=== PATIENT | male | born 1955 | race Caucasian/White ===

== ENCOUNTER 2017-03-03 05:08 | Observation (INO) | payer OTHER ==
[~2017-03-03] VITALS: Ht 175.3 cm; Wt 56.7 kg
--- NOTE | ~2017-03-03 | HC ---
[facility] [place] [address] CONSULTATION Name: DELBRENDA MOHANG [facility]: 433[id number] Admission: 03/03/17 Attend Phys: Henna Arceo Discharge: Date of : 55 Report #: [id number] THIS REPORT FOR: //name// CC: Henna COPELANDKatie BECKY DATE OF SERVICE: 03/03/2017 DATE OF SERVICE: 03/03/2017 CHIEF COMPLAINT: Right knee and ankle sprain, syncope and fall. HISTORY OF PRESENT ILLNESS: This very frail 62-year-old gentleman with multiple medical problems and renal transplant performed 3 years ago, currently lives at home with his nephew and the nephew's . He states he has been moderately active and fairly independent without significant recent problems. He denies significant preexisting knee or ankle pain. This morning, he states he was descending stairs and suddenly his legs gave away. It is not clear how far he may have fallen or whether he may have had a brief syncopal episode. He states he twisted the right knee and ankle as he fell and developed increased discomfort. He denies any other areas of discomfort at this time. PHYSICAL EXAMINATION: At the time of my evaluation, he is somewhat frail and mildly confused. He seems to understand the situation and offers a reasonably clear history of these events; however, I cannot determine if he actually had a brief period of syncope or simply stumbled and fell. He has no areas of complaint or discomfort aside from the right knee and the right ankle. Objectively, there is no evidence of head injury. There is no bruising. He has good movement of the neck without any apparent discomfort. He seems to have good movement of both upper extremities without any localized discomfort. He has an old AV fistula in the left forearm. The back seems to reveal normal contour and alignment and no significant discomfort to palpation or movement. The pelvis is stable and nontender. The left lower extremity reveals satisfactory movement of the left hip, knee and ankle without significant discomfort. There is minor crepitus at the knee suggesting mild degenerative arthritis. The right lower extremity is uncomfortable in a rather diffuse, nonspecific fashion. There is some swelling and mild knee effusion with some discomfort to palpation and movement in a rather diffuse fashion. The knee does not seem unstable and there is no obvious deformity. Findings are most consistent with a mild knee sprain with a secondary knee effusion. The right tibia seems to be intact and stable. He notes he did have an old fibula fracture many years ago and there is slight deformity over the mid fibula, but this is stable and nontender. The right ankle reveals satisfactory alignment and range of motion and stability, but there is some discomfort to palpation and movement consistent with a simple ankle sprain. Neurologic and vascular status appear to be intact. [address] [address] CONSULTATION Name: BRENDA MATHIS Room #: 433-I [facility] M.Sterling#: [id number] Admission: 03/03/17 Attend Phys: Henna Arceo Discharge: Date of : 55 Report #: [id number] IMAGING: X-rays of the right knee reveal moderate degenerative change with some periarticular spurring. There is some joint space narrowing consistent with degenerative change. There is no evidence of fracture. There is a mild knee effusion. X-rays of the right ankle reveal also moderate degenerative change with some spurring and joint space narrowing, but no evidence of fracture. ASSESSMENT AND PLAN: In summary, this gentleman is quite frail and probably needs a good deal of assistance for routine daily activities. I believe he simply fell and sprained the right knee and ankle. It is unclear if there was actually a syncopal episode or he simply had a misstep and fell. I think the right knee and ankle are stable and should do nicely with conservative management. He is currently supported in a long leg splint, but I think this can be removed at any point when comfort allows. I think he probably does need a brief hospital admission to assess for syncopal episode or any other current general medical problems with regard to the right knee and ankle. I believe he can start immediately with physical therapy for training and using a walker. I feel he can bear weight as tolerated. Whenever he is safe, he may be discharged for either assistance at home if possible or brief stay at an extended care facility if more directed assistance is required. <ELECTRONICALLY SIGNED> By: Brenda Ku MD 03/04/17 0804 [id number] [id number] Brenda Ku MD /nt
--- NOTE | ~2017-03-03 | 2DMMODE ---
[facility] [address] [place] [address] 2 D/M-MODE ECHOCARDIOGRAM Name: BRENDA MATHIS Room #: 433-I ADM IN .R.#: [id number] Admission: 03/03/17 Attend Phys: Henna Hugo Discharge: Date of : 55 Date of Service: 03/03/17 1556 Report #: [id number] THIS REPORT FOR: //name// APPROVED REPORT Study performed: 03/03/2017 13:53:54 EXAM: Comprehensive 2D, Doppler, and color-flow Echocardiogram Patient Location: Bedside Room #: 433 Status: routine BSA: 1.69 HR: 66 bpm BP: 143/61 mmHg Other Information Study Quality: Good Indications Diabetes Syncope Hypertension/HDD 2D Dimensions RVDd: 35.17 mm LVEF(%): 68.57 (>50%) IVSd: 15.70 (7-11mm) LVOT Diam: 17.70 (18-24mm) LVDd: 43.30 mm PWd: 15.60 (7-11mm) Ascending Ao: 24.93 (22-36mm) LVDs: 26.80 (25-40mm) Aortic Root: 32.31 mm IVC: 21.00 mm Morris's LVEF: 68.57 % Volumes Left Atrial Volume (Systole) Single Plane 4CH: 104.86 mL Single Plane 2CH: 70.06 mL LA ESV Index: 57.00 mL/m2 Aortic Valve AoV Peak Cali.: 2.55 m/s AO Peak Gr.: 26.05 mmHg LVOT Max P.48 mmHg AO Mean Gr.: 13.06 mmHg LVOT Mean P.30 mmHg AO V2 Mean: 1.69 m/s LVOT Max V: 1.06 m/s AO V2 VTI: 52.14 cm LVOT Mean V: 0.69 m/s LYUDMILA (VTI): 1.15 cm2 LVOT V1 VTI: 24.43 cm LYUDMILA Vmax: 1.02 cm2 [facility] [address] [place] [address] 2 D/M-MODE ECHOCARDIOGRAM Name: BRENDA MATHIS Room #: 433-I [facility] IN .R.#: [id number] Admission: 03/03/17 Attend Phys: Henna Hugo Discharge: Date of : 55 Date of Service: 03/03/17 1556 Report #: [id number] SV (LVOT): 60.05 mL Mitral Valve E/A Ratio: 1.2 MV Decel. Time: 198.41 ms MV E Max Cali.: 0.97 m/s MV A Cali.: 0.79 m/s MV PHT: 57.54 ms IVRT: 96.89 ms Pulmonary Valve PV Peak Cali.: 1.02 m/s PV Peak Gr.: 4.18 mmHg Pulmonary Vein P Vein S: 1.16 m/s P Vein A: 0.24 m/s P Vein D: 0.99 m/s P Vein A Dur.: 110.7 msec P Vein S/D Ratio: 1.17 Tricuspid Valve TR Peak Cali.: 3.09 m/s TR Peak Gr.: 38.28 mmHg PA Pressure: 48.00 mmHg Left Ventricle The left ventricle is normal size. Moderate concentric left ventricular hypertrophy. Left ventricular systolic function is normal. LVEF is 65%. Grade I - abnormal relaxation pattern. Right Ventricle The right ventricle is normal size. The right ventricular systolic function is normal. Atria Left atrium is dilated. Right atrium is at the upper limits of normal. Aortic Valve The aortic valve is normal in structure. Aortic valve is calcified. No aortic regurgitation is present. Moderate aortic stenosis. Mitral Valve The mitral valve is normal in structure. There is mitral annular calcification. Trace mitral regurgitation. No evidence of mitral valve stenosis. Tricuspid Valve [facility] [address] [place] [address] 2 D/M-MODE ECHOCARDIOGRAM Name: BRENDA MATHIS Room #: 433-I [facility] IN M.R.#: [id number] Admission: 03/03/17 Attend Phys: Henna Hugo Discharge: Date of : 55 Date of Service: 03/03/17 1556 Report #: [id number] The tricuspid valve is normal in structure. There is mild tricuspid regurgitation. There is moderate pulmonary hypertension. Pulmonic Valve The pulmonary valve is normal in structure. Trace pulmonic regurgitation. Great Vessels The aortic root is normal in size. IVC is dilated and collapses >50% with inspiration. Pericardium There is no pericardial effusion. <Conclusion> The left ventricle is normal size. Moderate concentric left ventricular hypertrophy. Left ventricular systolic function is normal. The right ventricle is normal size. Left atrium is dilated. Moderate aortic stenosis. There is mitral annular calcification. Trace mitral regurgitation. There is mild tricuspid regurgitation. There is moderate pulmonary hypertension. <ELECTRONICALLY SIGNED> By: Abdoulaye Vela MD 03/03/17 1556 1556 1556 Abdoulaye Vela MD /INF
[~2017-03-03 05:08] MED LIST: ALTACE10 M1 PO; COUMADIN 1MG TAB1 M1 PO; JANUVIA25 MG PO; LASIX 40 MG TAB40 M1 GT; LIPITOR40 MG PO; PHOSLO667 MG PO; PROZAC 20 MG20 M1 PO; TOPROL XL50 MG PO
[2017-03-03 05:09] VITALS: BP 143/67
[2017-03-03] MEDS ORDERED: MAGNESIUM-VIT1 EACH PO (05:14)
[2017-03-03] MEDS ORDERED: ASTAGRAF XL1 MG PO (05:15)
[2017-03-03] MEDS ORDERED: PREDNISONE 5 MG5 M1 PO (05:16)
[2017-03-03] MEDS ORDERED: MYFORTIC180 MG PO (05:16)
[2017-03-03] MEDS ORDERED: NORVASC10 MG PO (05:17)
[2017-03-03] MEDS ORDERED: COREG25 MG PO (05:17)
[2017-03-03] MEDS ORDERED: XIFAXAN550 M1 PO (05:19)
[2017-03-03] MEDS ORDERED: PROZAC20 MG PO (05:19)
[2017-03-03] MEDS ORDERED: JANUVIA100 MG PO (05:20)
[2017-03-03] MEDS ORDERED: LEVEMIR SUBQ (05:20)
[2017-03-03] MEDS ORDERED: SPIRIVA INH (05:21)
[2017-03-03] MEDS ORDERED: NOVOLOG100 UNIT/1 SUBQ (05:21)
[2017-03-03] MEDS ORDERED: ASPIRIN325 PO (05:22)
[2017-03-03 07:09] LABS: HEMATOCRIT 39.3 % (42.0-52.0); HEMOGLOBIN 13.4 gm/dL (14.0-18.0); MCH 32.6 pg (26.0-34.0); MCHC 34.1 g/dL (28.0-37.0); MCV 95.6 fL (80.0-100.0); RBC 4.12 mil/uL (4.50-6.00); RDW 16.1 % (10.5-14.5); WBC 11.9 thou/uL (4.0-11.0)
[2017-03-03 07:25] LABS: APTT 30.6 Seconds (24.5-32.8); PROTIME 20.2 Seconds (9.3-11.4)
[2017-03-03 07:26] LABS: CALCIUM 9.1 mg/dL (8.5-10.1); CREATININE 1.8 mg/dL (0.7-1.3); POTASSIUM 3.6 mmol/L (3.5-5.1)
[2017-03-03 07:29] LABS: ALBUMIN 3.8 g/dL (3.4-5.0); TOTAL BILIRUBIN 0.9 mg/dL (<0.1-1.0); TOTAL PROTEIN 6.2 g/dL (6.4-8.2)
[2017-03-03 08:03] VITALS: BP 178/64
[2017-03-03 08:59] VITALS: BP 178/64
[2017-03-03 09:50] VITALS: BP 143/61
[2017-03-03 16:00] VITALS: BP 126/58
[2017-03-03 20:40] VITALS: BP 111/51
[2017-03-04 04:02] VITALS: BP 128/56
[2017-03-04 06:49] LABS: INR 1.6; PROTIME 16.7 Seconds (9.3-11.4)
[2017-03-04 06:54] LABS: ALBUMIN 3.1 g/dL (3.4-5.0); CALCIUM 8.5 mg/dL (8.5-10.1); CREATININE 1.2 mg/dL (0.7-1.3); PHOSPHORUS 2.3 mg/dL (2.5-4.9); POTASSIUM 3.4 mmol/L (3.5-5.1)
[2017-03-04 07:52] VITALS: BP 150/64
[2017-03-04 10:43] VITALS: BP 150/64
[2017-03-04 15:07] VITALS: BP 96/41
[2017-03-04 19:03] VITALS: BP 119/46
[2017-03-05 04:30] VITALS: BP 137/36
[2017-03-05 08:00] VITALS: BP 119/46; BP 151/63
[2017-03-05] MEDS ORDERED: HYDROCODON-ACE1 EAC7 PO (09:28)
== END 2017-03-05 14:50 | disposition home or self-care (01) ==
LOC: ER 05:08 → EROBS 07:36 → 4S 07:36
PROVIDERS: Emergency Medicine; Hospitalist
DX: S80.01XA Contusion of right knee, initial encounter (principal); W19.XXXA Unspecified fall, initial encounter; Y93.89 Activity, other specified; Y92.89 Other specified places as the place of occurrence of the external cause; Y99.8 Other external cause status; F17.210 Nicotine dependence, cigarettes, uncomplicated; E11.22 Type 2 diabetes mellitus with diabetic chronic kidney disease; I12.0 Hypertensive chronic kidney disease with stage 5 chronic kidney disease or end stage renal disease; N18.6 End stage renal disease; Z99.2 Dependence on renal dialysis; R55 Syncope and collapse; E86.9 Volume depletion, unspecified

== ENCOUNTER 2018-06-24 16:09 | Emergency (ER) | payer OTHER ==
[~2018-06-24] VITALS: Ht 175.3 cm; Wt 59.0 kg
[~2018-06-24 16:09] MED LIST changes: +ASPIRIN325 PO; +ASTAGRAF XL1 MG PO; +COREG25 MG PO; +HYDROCODON-ACE1 EAC7 PO; +JANUVIA100 MG PO; -LASIX 40 MG TAB40 M1 GT; +LASIX 40 MG TAB40 M1 PO; +LEVEMIR SUBQ; +MAGNESIUM-VIT1 EACH PO; +MYFORTIC180 MG PO; +NORVASC10 MG PO; +NOVOLOG100 UNIT/1 SUBQ; +PREDNISONE 5 MG5 M1 PO; +PROZAC20 MG PO; +SPIRIVA INH; +XIFAXAN550 M1 PO
[2018-06-24 17:00] LABS: BE(vivo) 3.1 mmol/L (-2 to +3); PCO2 45.1 mmHg (35.0-45.0); PO2 96.9 mmHg (80.0-100.0); pH 7.411 (7.360-7.450); sO2 97.4 % (92.0-98.0)
[2018-06-24 18:20] VITALS: BP 154/62
== END 2018-06-24 18:21 | disposition home or self-care (01) ==
LOC: ER 16:09
PROVIDERS: Emergency Medicine
DX: T69.9XXA Effect of reduced temperature, unspecified, initial encounter (principal); R06.00 Dyspnea, unspecified; G89.29 Other chronic pain; E11.9 Type 2 diabetes mellitus without complications; I10 Essential (primary) hypertension; K75.9 Inflammatory liver disease, unspecified; N19 Unspecified kidney failure; Z99.2 Dependence on renal dialysis; Z90.49 Acquired absence of other specified parts of digestive tract; Z87.891 Personal history of nicotine dependence; Z91.09 Other allergy status, other than to drugs and biological substances

== ENCOUNTER 2018-06-25 17:51 | Inpatient (IN) | payer OTHER ==
[~2018-06-25] VITALS: Ht 175.3 cm; Wt 59.4 kg
--- NOTE | ~2018-06-25 | H ---
[facility] [place] [place] [address] HISTORY AND PHYSICAL Name: DELBRENDA García Room #: 170-23 [facility] Judy#: [id number] Admission: 06/25/18 Attend Phys: Gerson Elliott MD Discharge: Date of : 55 Report #: [id number] THIS REPORT FOR: //name// CC: Gerson COPELANDKatie KAYLAJoe DATE OF SERVICE: 06/25/2018 REASON FOR ADMISSION: Shortness of breath, in need for the oxygen, out of power. HISTORY OF PRESENT ILLNESS: This is a very complicated 63-year-old with extensive past medical history including end-stage renal disease who was on hemodialysis for 9 years and had a kidney transplant 5 years ago. He is also known to have hepatitis C, recently diagnosed with lung cancer. A few months ago, the patient had recurrent pleural effusion and was diagnosed to have lung cancer. Unfortunately, none of his records are available for me. All of his care had been carried out at [facility]. This includes his kidney transplant, his oncologist care. Unfortunately, the patient has issues with his power at home. He requires oxygen and because of the lack of power, he presented to our facility. He is maintained by nasal cannula 2 liters. He did not feel safe returning home since he is in need for oxygen. The patient is not clear on his current health issues; however, he tells me that he had a kidney transplant 5 years ago and he is maintained on dual immunosuppression. He also had a newly diagnosed lung cancer for which he received radiotherapy with no success. He is currently receiving chemotherapy, but he does not recall the exact name of his chemotherapeutic agents. PAST MEDICAL AND SURGICAL HISTORY: 1. Lung cancer. 2. Kidney transplant 5 years ago. 3. Remote history of end-stage renal disease, maintained on dialysis for 9 years with a left arm AV fistula that is clotted. 4. Diabetes mellitus. 5. Anemia. 6. Hepatitis C. 7. Left AV fistula. 8. Recurrent pleural effusion. 9. Anemia. 10. Tonsillectomy. 11. Cholecystectomy. SOCIAL HISTORY: He denies drug or alcohol abuse. He quit smoking back in February. He smoked for about 25 years. MEDICATIONS: [facility] [address] [place] [address] HISTORY AND PHYSICAL Name: BRENDA MATHIS Room #: 170-[facility] Antonieta Mcbride.#: [id number] Admission: 06/25/18 Attend Phys: Gerson Elliott MD Discharge: Date of : 55 Report #: [id number] 1. Rifaximin. 2. Warfarin. 3. Atorvastatin. 4. Carvedilol. 5. Amlodipine. 6. Furosemide. 7. Prednisone. 8. Sitagliptin. 9. Mycophenolate. 10. Prograf. ADDITIONAL PAST MEDICAL HISTORY: 1. History of DVT for which he is maintained on Coumadin. 2. History of inferior vena cava filter placement. 3. Questionable history of a stent in his renal artery, there is the grafted kidney. 4. History of atrial fibrillation with ablation x 2. 5. COPD. REVIEW OF SYSTEMS: GENERAL: Significant for weakness. CARDIOVASCULAR: Shortness of breath. PULMONARY: Chronic cough. Chronic shortness of breath. GASTROINTESTINAL: Loss of appetite with weight loss. MUSCULOSKELETAL: Occasional back pain. GENITOURINARY: No hematuria. No frequency. NEUROLOGIC: Weakness. PHYSICAL EXAMINATION: GENERAL: The patient is very emaciated and cachectic. VITAL SIGNS: Temperature 37.3, pulse 93, respiratory rate 16, blood pressure 128/77, pulse ox 95% on 2 liters. HEAD AND NECK: No jugular venous distention. CHEST: Decreased air entry bilaterally. CARDIOVASCULAR: No rub detected. ABDOMEN: Soft, nontender with grafted kidney in the right lower quadrant. EXTREMITIES: Lower extremities, no edema with intact peripheral pulses. LABORATORY DATA: None. ASSESSMENT, IMPRESSION AND PLAN: 1. Lung cancer. 2. Chronic obstructive pulmonary disease, chronic respiratory failure. 3. Oxygen dependence. 4. Kidney transplant. 5. Immunosuppressive status. [facility] [address] [place] [address] HISTORY AND PHYSICAL Name: BRENDA MATHIS Room #: [address]#: [id number] Admission: 06/25/18 Attend Phys: Gerson Elliott MD Discharge: Date of : 55 Report #: [id number] 6. Malnutrition. 7. Ongoing social issues. 8. We will admit the patient overnight and resume his usual home medications. Keep on oxygen. 9. Obtain routine labs. 10. Resume his immunosuppressive medication for his kidney transplant. 11. Accu-Chek. 12. Resume his diabetic medications. 13. Check INR and resume his Coumadin for his deep venous thrombosis. 14. If the patient's power is back, he should be able to go home tomorrow and he could follow up with for ongoing issues; otherwise, he will need complete consultations for his ongoing lung cancer issues, retrieval of all of his medical records from . By: [id number] Gerson Elliott MD /nt
[2018-06-25 17:58] VITALS: BP 128/77
--- NOTE | 2018-06-25 18:37 | NUR ---
PLEASE CALL [facility] AT [phone] WITH UPDATE ON PT LOCATION. [facility] IS PT [id number]. PT LIVES WITH ROSA MEDEL, PHONE NUMBER IS [phone].
[2018-06-25 21:02] VITALS: BP 190/97
[2018-06-25 21:18] VITALS: BP 198/86
[2018-06-26 03:23] VITALS: BP 159/81
[2018-06-26 05:51] LABS: RBC 1.82 mil/uL (4.50-6.00)
[2018-06-26 05:53] LABS: MCH 34.7 pg (26.0-34.0); MCHC 34.1 g/dL (28.0-37.0); MCV 101.7 fL (80.0-100.0); RDW 23.3 % (10.5-14.5); WBC 3.5 thou/uL (4.0-11.0)
[2018-06-26 05:56] LABS: INR 1.2; PROTIME 12.5 Seconds (9.3-11.4)
[2018-06-26 05:57] LABS: HEMOGLOBIN 6.3 gm/dL (14.0-18.0)
[2018-06-26 05:58] LABS: HEMATOCRIT 18.5 % (42.0-52.0)
[2018-06-26 06:17] LABS: ALBUMIN 2.4 g/dL (3.4-5.0); CALCIUM 8.6 mg/dL (8.5-10.1); POTASSIUM 4.1 mmol/L (3.5-5.1); TOTAL BILIRUBIN 0.6 mg/dL (<0.1-1.0); TOTAL PROTEIN 5.3 g/dL (6.4-8.2)
[2018-06-26 07:27] VITALS: BP 171/86
--- NOTE | 2018-06-26 08:03 | NUR ---
Received pt from ED at 2109. He can in for Hypoxia. Pt has active lung cancer and is receiving chemo. He is ACHS. Has a right chest port. Left forearm fistula. No skin issues. ON 2L NC. She to work with social service assistant for placement. HGB can in at 6.3 and HCT 18.5 informed WARRANTY ADMINISTRATOR and she order 1 unit of blood. No identified needs at the moment. Will continue to monitor.
[2018-06-26 16:04] VITALS: BP 102/58
[2018-06-26 16:11] VITALS: BP 125/62; BP 132/60
--- NOTE | 2018-06-26 16:19 | NUR ---
PATIENT UP WITH STB ASSIST. FREQUENTLY USES FURNITURE FOR BALANCE. PATIENT PROVIDED WITH WALKER FOR USE. PATIENT CALLS FOR ASSIST. REMAINS ON 2L NC (HOME DOSE) O2 SATS 100%. PATIENT RIGHT CHEST PORT ACCESSED THIS SHIFT, 1 UNIT OF BLOOD TRANSFUSED THIS SHIFT. PATIENT REPORTS CHRONIC PAIN MANAGED WITH MEDICATION ORDERED. REPORTS RELIEF IN SYMPTOMS.
--- NOTE | 2018-06-26 16:51 | NUR ---
PT ADMITTED RELATED TO HYPOXIA. CM REVIEWED CHART AND SPOKE WITH CARE TEAM. CM MET WITH PT AT BEDSIDE THIS DAY. PT IS A&O X4. CM ROLE INTRODUCED. PT INDICATED HE LIVES IN A HOUSE WITH HIS NEPHEW ALBERTO AND HIS SHIRA. PT INDICATED HE HAD BEEN INDEPENDENT WITH ADLS BUT HIS NEPHEW'S COOKS. PT HAS HOME O2 BUT CAN'T RECALL PROVIDER. PT'S POWER HAD GONE OUT SO HE CAME TO THE ER. PT USUALLY GOES TO FOR CARES. PLAN IS FOR PT TO RETURN HOME ONCE MEDICALLY STABLE. CM PROVIDED PT WITH LIST OF WARM SHELTERS. CM TO FOLLOW INDICTED WITH DC PLANNING.
[2018-06-26 19:24] VITALS: BP 128/62
[2018-06-27 04:13] VITALS: BP 153/77
--- NOTE | 2018-06-27 04:55 | NUR ---
PATIENT IS PROGRESSING IN HIS CARE PLAN. VITAL SIGNS STABLE WITH PATIENT HAVING NO COMPLAINTS OF PAIN OR NAUSEA. FULLY ORIENTED, PATIENT IS ABLE TO PARTICIPATE IN CARE PLAN AND CALL APPROPRIATELY FOR NEEDS. PATIENTS BREATHING STABLE ON HOME OXYGEN REGIMEN EVIDENCED BY SPOT OXYGENATION CHECKS. PATIENT OFFERED NUTRITION OFTEN. PATIENT ABLE TO AMBULATE WITH ASSISTANCE INCIDENT FREE BUT IS CONSIDERED A HIGH FALL RISK DUE TO WEAKNESS. POTENTIAL DISCHARGE TODAY. CONTINUE PLAN OF CARE.
[2018-06-27 06:52] LABS: NUCLEATED RBCS 1 /100WBC
[2018-06-27 06:53] LABS: POLYCHROMASIA 1+
[2018-06-27 06:54] LABS: PLATELET ESTIMATE MARKEDLY DECREASED
[2018-06-27 07:16] LABS: HEMATOCRIT 21.4 % (42.0-52.0); HEMOGLOBIN 7.4 gm/dL (14.0-18.0); WBC 3.3 thou/uL (4.0-11.0)
[2018-06-27 07:17] LABS: MCH 33.4 pg (26.0-34.0); MCHC 34.4 % (28.0-37.0); MCV 97.2 fL (80.0-100.0); RDW 22.5 % (10.5-14.5)
[2018-06-27 08:00] VITALS: BP 176/75
[2018-06-27 08:44] LABS: PLATELET COUNT 42 thou/uL (150-400)
[2018-06-27 10:42] VITALS: BP 176/75
[2018-06-27 10:57] VITALS: BP 176/75
[2018-06-27 10:58] VITALS: BP 176/75
--- NOTE | 2018-06-27 11:36 | NUR ---
Pt stable, did have a small bout of nausea which resolved with out medication. Still on 2L of O2 via NC. Uses the urinal and uses the call light appropriately. DC instructions given to the pt and his sister and brother. Needle on cat removed.
[2018-06-27] MEDS ORDERED: COREG12.5 MG PO (13:24)
[2018-06-27] MEDS ORDERED: CALCIUM 500 +1 EAC5 PO (13:24)
[2018-06-27] MEDS ORDERED: KEFLEX500 M1 PO (13:25)
[2018-06-27] MEDS ORDERED: HUMALOG100 UNIT/1 SUBQ ×2 (13:26→13:27)
[2018-06-27] MEDS ORDERED: LEVEMIR SUBQ (13:26)
[2018-06-27] MEDS ORDERED: PROZAC20 MG PO (13:26)
[2018-06-27] MEDS ORDERED: IRON325 PO (13:26)
[2018-06-27] MEDS ORDERED: FOLIC ACID1 MG PO (13:26)
[2018-06-27] MEDS ORDERED: MAGOX 400400 MG PO (13:27)
[2018-06-27] MEDS ORDERED: PRAVACHOL40 MG PO (13:28)
[2018-06-27] MEDS ORDERED: MUPIROCIN22 GM TOP (13:28)
[2018-06-27] MEDS ORDERED: OXYCODONE HCL 55 MG PO (13:28)
[2018-06-27] MEDS ORDERED: XIFAXAN550 M1 PO (13:28)
[2018-06-27] MEDS ORDERED: PREDNISONE 5 MG5 M1 PO (13:28)
[2018-06-27] MEDS ORDERED: SALINE NASAL M126 ML NASAL (13:29)
[2018-06-27] MEDS ORDERED: XARELTO20 MG PO (13:29)
[2018-06-27] MEDS ORDERED: STIOLTO RESPIMAT4 GM INH (13:30)
[2018-06-27] MEDS ORDERED: ASTAGRAF XL0.5 MG PO (13:30)
[2018-06-28 07:53] LABS: ABSOLUTE NEUTROPHILS 1.6 thou/uL (1.4-8.2)
[2018-06-28] MEDS ORDERED: VITAMIN D2000 UNIT PO (19:13)
[2018-06-28] MEDS ORDERED: VITAMIN D3400 UNIT PO (19:14)
[2018-06-28] MEDS ORDERED: SENNA8.6 MG PO (19:17)
== END 2018-06-27 11:53 | disposition home health service (06) | DRG 808 ==
LOC: ER 17:51 → EROBS 18:00 → 4W 21:03
PROVIDERS: Hospitalist; ADMIT Hospitalist
PROC: 30233N1 Transfusion of Nonautologous Red Blood Cells into Peripheral Vein, Percutaneous Approach (ICD-10-PCS; principal; 2018-06-26)
DX: D61.818 Other pancytopenia (principal); E43 Unspecified severe protein-calorie malnutrition; C91.10 Chronic lymphocytic leukemia of B-cell type not having achieved remission; E46 Unspecified protein-calorie malnutrition; J96.11 Chronic respiratory failure with hypoxia; C34.91 Malignant neoplasm of unspecified part of right bronchus or lung; Z68.1 Body mass index [BMI] 19.9 or less, adult; Z94.0 Kidney transplant status; I12.0 Hypertensive chronic kidney disease with stage 5 chronic kidney disease or end stage renal disease; D50.0 Iron deficiency anemia secondary to blood loss (chronic); E11.22 Type 2 diabetes mellitus with diabetic chronic kidney disease; J44.9 Chronic obstructive pulmonary disease, unspecified; I48.91 Unspecified atrial fibrillation; Z88.8 Allergy status to other drugs, medicaments and biological substances; Z79.899 Other long term (current) drug therapy; Z92.21 Personal history of antineoplastic chemotherapy; Z79.82 Long term (current) use of aspirin; Z79.4 Long term (current) use of insulin; Z90.49 Acquired absence of other specified parts of digestive tract; Z87.891 Personal history of nicotine dependence; Z99.81 Dependence on supplemental oxygen; Z86.19 Personal history of other infectious and parasitic diseases; Z79.1 Long term (current) use of non-steroidal anti-inflammatories (NSAID); Z92.3 Personal history of irradiation; Z86.718 Personal history of other venous thrombosis and embolism; Z79.01 Long term (current) use of anticoagulants
CPT/HCPCS: 10040

== ENCOUNTER 2018-06-28 17:29 | Emergency (ER) | payer OTHER ==
[~2018-06-28] VITALS: Ht 175.3 cm; Wt 61.2 kg
[~2018-06-28 17:29] MED LIST changes: +ASTAGRAF XL0.5 MG PO; +CALCIUM 500 +1 EAC5 PO; +COREG12.5 MG PO; +FOLIC ACID1 MG PO; +HUMALOG100 UNIT/1 SUBQ; +IRON325 PO; +KEFLEX500 M1 PO; +MAGOX 400400 MG PO; +MUPIROCIN22 GM TOP; +OXYCODONE HCL 55 MG PO; +PRAVACHOL40 MG PO; +SALINE NASAL M126 ML NASAL; +STIOLTO RESPIMAT4 GM INH; +XARELTO20 MG PO
[2018-06-28 18:14] LABS: HEMATOCRIT 24.3 % (42.0-52.0); HEMOGLOBIN 8.1 gm/dL (14.0-18.0); MCH 33.1 pg (26.0-34.0); MCHC 33.3 g/dL (28.0-37.0); MCV 99.2 fL (80.0-100.0); PLATELET COUNT 53 thou/uL (150-400); RBC 2.45 mil/uL (4.50-6.00); RDW 25.2 % (10.5-14.5); WBC 3.7 thou/uL (4.0-11.0)
[2018-06-28 18:33] LABS: CALCIUM 8.9 mg/dL (8.5-10.1); CREATININE 0.9 mg/dL (0.7-1.3); POTASSIUM 4.1 mmol/L (3.5-5.1)
[2018-06-28 18:37] LABS: ALBUMIN 2.5 g/dL (3.4-5.0); TOTAL BILIRUBIN 0.8 mg/dL (<0.1-1.0); TOTAL PROTEIN 5.6 g/dL (6.4-8.2)
[2018-06-28 18:47] LABS: ABSOLUTE NEUTROPHILS 2.8 thou/uL (1.4-8.2)
[2018-06-28 18:48] LABS: ANISOCYTOSIS 2+; HYPOCHROMASIA SLIGHT; POLYCHROMASIA SLIGHT
[2018-06-28] MEDS ORDERED: VITAMIN D2000 UNIT PO (19:13)
[2018-06-28] MEDS ORDERED: VITAMIN D3400 UNIT PO (19:14)
[2018-06-28] MEDS ORDERED: SENNA8.6 MG PO (19:17)
[2018-06-29 03:38] VITALS: BP 168/73
--- NOTE | 2018-06-29 08:02 | EKG ---
[facility] [place] [address] ELECTROCARDIOGRAM REPORT Name: BRENDA MATHIS [id number] Admission: 06/28/18 Attend Phys: Discharge: 06/29/18 Date of : 55 Report #: [id number] THIS REPORT FOR: //name// [facility] ED Test Date: 2018-06-28 Test Time: 18:46:19 Pat Name: BRENDA DEL Department: Room: Gender: Sensitizer: WG : 1955 Requested By: Neil Givens Order Number: [id number] MD: Armani Ramesh Measurements Intervals [place] Rate: 77 P: 42 UT: 161 QRS: 35 QRSD: 115 T: 2 QT: 432 QTc: 489 Interpretive Statements Sinus rhythm Incomplete right bundle branch block Compared to ECG 04/08/2009 15:03:00 supraventricular complexes are no longer present Electronically Signed On 06-29-2018 8:02:44 CAFE SITE ATTENDANT by Armani Ramesh [email or web address] <ELECTRONICALLY SIGNED> By: Armani Ramesh MD, [facility] 06/29/18 0802 1846 1846 Armani Ramesh MD, FACC /EPI
== END 2018-06-29 03:39 | disposition home or self-care (01) ==
LOC: ER 17:29
PROVIDERS: Emergency Medicine
DX: R04.0 Epistaxis (principal); E11.9 Type 2 diabetes mellitus without complications; I10 Essential (primary) hypertension; Z88.8 Allergy status to other drugs, medicaments and biological substances; Z87.891 Personal history of nicotine dependence; Z79.4 Long term (current) use of insulin; Z86.19 Personal history of other infectious and parasitic diseases; Z90.49 Acquired absence of other specified parts of digestive tract; Z85.118 Personal history of other malignant neoplasm of bronchus and lung; Z98.890 Other specified postprocedural states; Z86.2 Personal history of diseases of the blood and blood-forming organs and certain disorders involving the immune mechanism